=== PATIENT | female | born 1975 | race Two or more races ===

== ENCOUNTER 2018-07-29 11:02 | Outpatient (CLI) | payer OTHER ==
[2018-07-29] MEDS ORDERED: CRYSELLE-28 TA1 EACH PO (13:06)
[2018-07-29] MEDS ORDERED: IRON325 MG PO (13:06)
== END 2018-07-29 11:11 | disposition home or self-care (01) ==
LOC: EKG 11:02
DX: R94.31 Abnormal electrocardiogram [ECG] [EKG] (principal)

== ENCOUNTER 2018-07-29 13:45 | Inpatient (IN) | payer OTHER ==
[~2018-07-29] VITALS: Ht 157.5 cm; Wt 80.3 kg
[~2018-07-29 13:45] MED LIST: CRYSELLE-28 TA1 EACH PO; IRON325 MG PO
[2018-08-03] MEDS ORDERED: ULTRACET PO (08:01)
[2018-08-03] MEDS ORDERED: SURFAK240 M1 PO (08:01)
[2018-08-03] MEDS ORDERED: SLOW FE142 MG PO (08:01)
[2018-08-03] MEDS ORDERED: GAS RELIEF 8080 MG PO (08:01)
[2018-08-03] MEDS ORDERED: PEPCID20 MG PO (08:05)
== END 2018-08-03 10:05 | disposition home or self-care, planned readmission (81) | DRG 743 ==
LOC: OB/GYN 08-02 06:49 → O/R 08-02 06:49 → OB/GYN 08-02 13:15 → SURH 08-02 13:45 → OB/GYN 08-03 10:05
PROVIDERS: Urology
PROC: 0TJB8ZZ Inspection of Bladder, Via Natural or Artificial Opening Endoscopic (ICD-10-PCS; 2018-08-02)
PROC: 0UT97ZZ Resection of Uterus, Via Natural or Artificial Opening (ICD-10-PCS; principal; 2018-08-02 16:15)
PROC: 0UT77ZZ Resection of Bilateral Fallopian Tubes, Via Natural or Artificial Opening (ICD-10-PCS; 2018-08-02 16:15)
DX: D25.1 Intramural leiomyoma of uterus (principal); D25.0 Submucous leiomyoma of uterus; D25.2 Subserosal leiomyoma of uterus; N80.2 Endometriosis of fallopian tube; K21.9 Gastro-esophageal reflux disease without esophagitis